=== PATIENT | female | born 1985 | race Hispanic/Latino ===

== ENCOUNTER 2021-03-23 23:53 | Inpatient (IN) | payer OTHER, SELFPAY ==
[2021-03-24 00:17] LABS: Urine Blood Negative (Negative); Urine Glucose Negative (Negative); Urine Protein Negative (Negative); Urine Specific Gravity 1.025 (1.005-1.030); Urine pH 6.5 (5.0-7.0)
[2021-03-24 00:33] LABS: Urine Specific Gravity/Preg 1.025 (1.005-1.030)
[2021-03-24] MEDS ORDERED: METHYLPREDNISOLONE 125 MG INJ ONE ×3 (01:15→22:01)
[2021-03-24 02:01] LABS: Absolute Lymphocytes (CBC) 1.4 K/uL (0.7-4.9); Hematocrit 41.3 % (36.0-45.0); Lymphocytes % 25.5 % (15.3-44.8); RBC Red Blood Cell Count 4.76 M/uL (3.86-4.86)
[2021-03-24 02:02] LABS: Protime INR 1.01
[2021-03-24 02:14] LABS: ALT/SGPT 93 U/L (12-78); AST/SGOT 78 U/L (15-37); Albumin 2.7 g/dL (3.4-5.0); Alkaline Phosphatase 84 U/L (45-117); BUN Blood Urea Nitrogen 18 mg/dL (7-18); Bicarbonate 29 mmol/L (21-32); Bilirubin Direct < 0.1 mg/dL (0-0.2); Bilirubin Total 0.2 mg/dL (0.2-1.0); Ferritin 167.1 ng/mL (8-388); Glucose Level 99 mg/dL (74-106); Lipase 93 U/L (73-393); Potassium 3.4 mmol/L (3.5-5.1); Protein, Total 6.9 g/dL (6.4-8.2); Sodium Level 140 mmol/L (136-145); Troponin (Emerg Dept Use Only) < 0.02 ng/mL (0.0-0.045)
--- NOTE | 2021-03-24 02:28 | EDPHYS ---
Physician Documentation [facility] Name: Jayson Meyers Age: 36 yrs Sex: Female : 1985 Arrival Date: 03/23/2021 Time: 23:56 Bed 23 Private MD: ED Physician Levi Chew HPI: 03/24 01:21 This 36 yrs old Unknown Female presents to ER via Ambulatory with complaints of pm1 Shortness Of Breath - O2-88%. 01:21 The patient has shortness of breath at rest. Onset: The symptoms/episode began/occurred pm1 5 day(s) ago. Duration: The symptoms are continuous, and are steadily getting worse. The patient's shortness of breath is aggravated by exertion, is alleviated by nothing. Associated signs and symptoms: Pertinent positives: chest pain, non-productive cough, Headache, Pertinent negatives: fever, nausea, vomiting, Diarrhea. Severity of symptoms: in the emergency department the symptoms are worse. The patient has not experienced similar symptoms in the past. The patient has not recently seen a physician. 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 - Social history:: Smoking status: Patient denies any tobacco usage or history of. ROS: 01:21 ENT: Negative for injury, pain, and discharge, Cardiovascular: Negative for chest pain, pm1 palpitations, and edema. 01:21 Abdomen/GI: Negative for abdominal pain, nausea, vomiting, diarrhea, and constipation, Back: Negative for injury and pain, MS/Extremity: Negative for injury and deformity, Skin: Negative for injury, rash, and discoloration. 01:21 Constitutional: Negative for fever, poor PO intake. 01:21 Cardiovascular: Positive for chest pain, with cough. 01:21 Respiratory: Positive for cough, with no reported sputum, shortness of breath, at rest. 01:21 Neuro: Positive for headache, Negative for weakness. 01:21 All other systems are negative. Exam: 01:21 Constitutional: This is a well developed, well nourished patient who is awake, alert, pm1 and in no acute distress. Head/Face: Normocephalic, atraumatic. 01:21 Skin: Warm, dry with normal turgor. Normal color with no rashes, no lesions, and no evidence of cellulitis. MS/ Extremity: Pulses equal, no cyanosis. Neurovascular intact. Full, normal range of motion. 01:21 Eyes: Exam is negative for acute changes, Extraocular movements: no acute changes, Conjunctiva: normal, no injection. 01:21 ENT: Exam is negative for acute changes, Mouth: Lips: normal, Oral mucosa: normal, pink and intact, moist. 01:21 Cardiovascular: Rate: normal, Rhythm: regular, Pulses: no pulse deficits are appreciated, Heart sounds: normal, normal S1and S2, Edema: is not appreciated. 01:21 Respiratory: Exam negative for the patient does not display signs of respiratory distress, Respirations: tachypnea, Breath sounds: bronchial sounds, that are mild, are heard diffusely. 01:21 Abdomen/GI: Inspection: abdomen appears normal, Palpation: abdomen is soft and non-tender, in all quadrants. 01:21 Neuro: Exam negative for acute changes, Orientation: is normal, Mentation: is normal, Motor: is normal, moves all fours. Vital Signs: 03/23 23:58 BP 115 / 88; Pulse 80; Resp 32; Temp 98.9(O); Pulse Ox 90% on R/A; Weight 79.83 kg (R); kg Height 5 ft. 7 in. (170.18 cm) (R); Pain 8/10; 03/24 01:35 Pulse 64; Resp 26; Pulse Ox 96% on 3 lpm NC; ea 01:46 Temp 97.8; ea 03/23 23:58 Body Mass Index 27.57 (79.83 kg, 170.18 cm) kg MDM: 00:36 Patient medically screened. pm1 01:21 Data reviewed: vital signs. pm1 02:03 Counseling: I had a detailed discussion with the patient and/or guardian regarding: the pm1 historical points, exam findings, and any diagnostic results supporting the discharge/admit diagnosis, lab results, radiology results, the need for further work-up and treatment in the hospital. 02:26 Data interpreted: Pulse oximetry: on 3L(s) per nasal canula, is 96 %. Interpretation: pm1 normal. 02:27 Physician consultation: Niles RUSSELL regarding admission, patient's condition, and pm1 will see patient in ED. 03/24 00:17 Order name: Urine --Ancillary (enter results) mw2 03/24 00:17 Order name: Urine Dipstick-Ancillary; Complete Time: 00:40 EDMS 03/24 00:18 Order name: Urine --Ancillary; Complete Time: 00:40 EDMS 03/24 00:39 Order name: BMP; Complete Time: 02:22 pm03/24 00:39 Order name: Blood Culture Adult (2) pm1 03/24 00:39 Order name: C-Reactive Protein; Complete Time: 02:22 pm03/24 00:39 Order name: CBC with Diff; Complete Time: 02:22 pm03/24 00:39 Order name: D-Dimer; Complete Time: 02:22 pm03/24 00:39 Order name: Ferritin; Complete Time: 02:22 pm03/24 00:39 Order name: Flu pm1 03/24 00:39 Order name: LFT's; Complete Time: 02:22 pm03/24 00:39 Order name: Lactate pm03/24 00:39 Order name: Lipase; Complete Time: 02:22 pm03/24 00:39 Order name: PT-INR; Complete Time: 02:22 pm03/24 00:05 Order name: XRAY Chest Pa And Lat (2 Views) kg 03/24 00:39 Order name: Procalcitonin pm03/24 00:39 Order name: Ptt, Activated; Complete Time: 02:22 pm03/24 00:39 Order name: Strep pm03/24 00:39 Order name: Troponin (emerg Dept Use Only); Complete Time: 02:22 pm03/24 00:39 Order name: Urine Microscopic Only pm03/24 05:12 Order name: Comprehensive Metabolic Panel EDMS 03/24 05:12 Order name: Phosphorus EDMS 03/24 05:12 Order name: Magnesium EDMS 03/25 03:20 Order name: Comprehensive Metabolic Panel EDMS 03/25 03:20 Order name: Phosphorus EDMS 03/25 03:20 Order name: C-Reactive Protein EDMS 03/25 03:20 Order name: Magnesium EDLA 03/25 03:20 Order name: Ferritin EDLA 03/25 04:22 Order name: Procalcitonin [facility] 03/24 00:17 Order name: Urine Dipstick-Ancillary (obtain specimen); Complete Time: 00:17 mw2 03/24 00:17 Order name: Urine Test (obtain specimen); Complete Time: 00:17 mw2 03/24 00:39 Order name: EKG; Complete Time: 00:40 pm1 03/24 00:39 Order name: Cardiac monitoring; Complete Time: 01: pm03/24 00:39 Order name: Droplet/Contact Precautions; Complete Time: : pm03/24 00:39 Order name: EKG - Nurse/Tech; Complete Time: : pm03/24 00:39 Order name: IV Start; Complete Time: : pm03/24 00:39 Order name: Labs collected and sent; Complete Time: : pm03/24 00:39 Order name: O2 Per Protocol; Complete Time: : pm03/24 00:39 Order name: O2 Sat Monitoring; Complete Time: : pm03/24 03:02 Order name: CONS Physician Consult EDLA Administered Medications: 01:15 Drug: SOLU-Medrol (methylPrednisoLONE) 125 mg Route: IVP; Site: right antecubital; ea Disposition Summary: 03/24/21 02:28 Hospitalization Ordered Hospitalization Status: Observation pm1 Provider: Shemar Groves pm1 Condition: Stable pm1 Problem: new pm1 Symptoms: have improved pm1 Bed/Room Type: Standard pm1 Location: [facility] ER HOLD(03/24/21 03:55) Room Assignment: ERHOLD-(03/24/21 03:55) cg Diagnosis - Pneumonia due to SARS-associated coronavirus pm1 - Hypoxia pm1 Forms: - Medication Reconciliation Form pm1 - SBAR form pm1 Signatures: Dispatcher [employer] Kerry Meredith RN RN cg Marinas, Patrick, NP GREEN BUILDING MATERIALS DISTRIBUTOR pm1 Koki Chaparro RN RN Dakota Art 2 Shruthi Shah RN RN kg Corrections: (The following items were deleted from the chart) 00:47 00:40 Chest Single View+RAD.RAD.BRZ ordered. EDMS EDMS 02:21 01:21 Respiratory: Positive for cough, with no reported sputum, shortness of breath, pm1pm1 03:55 02:28 Telemetry/MedSurg (observation) pm1 cg 03:55 02:28 pm1 cg
--- NOTE | 2021-03-24 02:28 | ER ---
Nurse's Notes [facility] Name: Jayson Meyers Age: 36 yrs Sex: Female : 1985 Arrival Date: 03/23/2021 Time: 23:56 Bed 23 Private MD: Diagnosis: Pneumonia due to SARS-associated coronavirus;Hypoxia Presentation: 03/23 23:58 Chief complaint: Patient states: SOB x 5 days, today at home her 02 has been 88%. Pts kg O2 in triage is 90%RA. Coronavirus screen: Client denies travel out of the [place] in the last 14 days. At this time, unable to obtain information related to travel outside the [place] Client presents with at least one sign or symptom that may indicate coronavirus-19. Standard/surgical mask placed on the client. Provider contacted for isolation considerations. Client reports previous positive COVID test result. Date of collection: March 20, 2021. Ebola Screen: Patient negative for fever greater than or equal to 101.5 degrees Fahrenheit, and additional compatible Ebola Virus Disease symptoms Patient denies exposure to infectious person. Patient denies travel to an Ebola-affected area in the 21 days before illness onset. Initial Sepsis Screen: Does the patient meet any 2 criteria? No. Patient's initial sepsis screen is negative. Does the patient have a suspected source of infection? Yes: Productive cough/pneumonia. Risk Assessment: Do you want to hurt yourself or someone else? Patient reports no desire to harm self or others. Onset of symptoms was March 22, 2021. 23:58 Method Of Arrival: Ambulatory kg 23:58 Acuity: JENNIFER 3 kg Triage Assessment: 03/24 00:02 General: Appears in no apparent distress. Behavior is calm, cooperative, appropriate kg for age, quiet. Pain: Complains of pain in chest Pain currently is 8 out of 10 on a pain scale. Quality of pain is described as pressure. Respiratory: Reports shortness of breath at rest on exertion cough that is non-productive, Onset: The symptoms/episode began/occurred gradually, the patient has mild shortness of breath. 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 - Social history:: Smoking status: Patient denies any tobacco usage or history of. Screenin:48 Abuse screen: Denies threats or abuse. Nutritional screening: No deficits noted. ea Tuberculosis screening: No symptoms or risk factors identified. Fall Risk None identified. Assessment: 00:48 General: Appears uncomfortable, Behavior is appropriate for age. Pain: Denies pain. ea Neuro: Level of Consciousness is awake, alert, obeys commands, Oriented to person, place, time. Cardiovascular: Patient's skin is warm and dry. Respiratory: Airway is patent Respiratory effort is unlabored, Respiratory pattern is tachypnea. Derm: Skin is pink, warm \T\ dry. 00:49 Reassessment: Pt ambulated approx 30 ft room air sats O2 sats 87%. ea 00:49 Reassessment: Pt placed on O2 at 3L per nasal cannula, pt tolerating well. ea 01:20 Reassessment: Patient and/or family updated on plan of care and expected duration. Pain ea level reassessed. Patient is alert, oriented x 3, equal unlabored respirations, skin warm/dry/pink. Provider at bedside updating pt on plan of care. Vital Signs: 03/23 23:58 BP 115 / 88; Pulse 80; Resp 32; Temp 98.9(O); Pulse Ox 90% on R/A; Weight 79.83 kg (R); kg Height 5 ft. 7 in. (170.18 cm) (R); Pain 8/10; 03/24 01:35 Pulse 64; Resp 26; Pulse Ox 96% on 3 lpm NC; ea 01:46 Temp 97.8; ea 03/23 23:58 Body Mass Index 27.57 (79.83 kg, 170.18 cm) kg ED Course: 03/23 23:56 Patient arrived in ED. wm 03/24 00:02 Triage completed. kg 00:02 Arm band placed on right wrist. kg 00:27 XRAY Chest Pa And Lat (2 Views) In Process Unspecified. EDMS 00:36 Bakari Medina NP is PHCP. pm1 00:36 Levi Chew MD is Attending Physician. pm1 00:48 Koki Chaparro, RN is Primary Nurse. ea 00:48 Patient has correct armband on for positive identification. Bed in low position. Call ea light in reach. Side rails up X2. 01:28 No provider procedures requiring assistance completed. Patient admitted, IV remains in ea place. 02:28 Shemar Groves MD is Hospitalizing Provider. pm1 03/25 07:40 Primary Nurse role handed off by Koki Chaparro RN bd Administered Medications: 03/24 01:15 Drug: SOLU-Medrol (methylPrednisoLONE) 125 mg Route: IVP; Site: right antecubital; ea Outcome: 01:28 Admitted to ER Hold. Please see [facility] for further documentation. ea 01:28 Condition: stable 01:28 Instructed on the need for admit. 02:28 Decision to Hospitalize by Provider. pm1 03/25 20:30 Patient left the ED. ld1 Signatures: Dispatcher [employer] EDMS Mayte Davis Patrick, DIRECTOR OF ANALYTICAL DEVELOPMENT DIRECTOR OF ANALYTICAL DEVELOPMENT pm1 Koki Chaparro, Francheska Livingston RN, ea, RN RN ld1 Shruthi Shah, Nathalia Steele RN, kg
[2021-03-24] MEDS ORDERED: ACETAMINOPHEN 500 MG TAB PO PRN (03:42)
[2021-03-24] MEDS ORDERED: MELATONIN 5 MG TABLET PO PRN (03:42)
[2021-03-24] MEDS ORDERED: BENZONATATE 100 MG CAP PO PRN (03:42)
[2021-03-24] MEDS: RIVAROXABAN 20 MG TABLET PO SCH ×2 (03:42→17:00)
[2021-03-24] MEDS ORDERED: POTASSIUM CL SA 10 MEQ TAB PO ONE ×2 (03:42→04:40)
[2021-03-24] MEDS ORDERED: ONDANSETRON 4 MG/2 ML VIAL IV PRN (03:42)
[2021-03-24] MEDS ORDERED: MORPHINE 2 MG/ML SYR IV PRN (03:42)
--- NOTE | 2021-03-24 04:18 | P.HP ---
Certification for Inpatient Patient admitted to: Inpatient With expected LOS: <2 Midnights Patient will require the following post-hospital care: None Practitioner: I am a practitioner with admitting privileges, knowledge of patient current condition, hospital course, and medical plan of care. Services: Services provided to patient in accordance with Admission requirements found in Title 42 Section 412.3 of the Code of Federal Regulations <Niles Alfred - Last Filed: 03/24/21 04:14> Patient History Date of Service: 03/24/21 Reason for admission: covid pneumonia History of Present Illness: Ms. Meyers is a 36 yo F who presents with SOB and cough for the past 5 days. She tested positive for COVID 6 days ago. At home, her O2 sats ere 88%. Here, she desats to 86% with movement. She is on 3L NC at bedside. Denies diarrhea, nausea, vomiting, fever. Ddimer 882. K 3.4. ASt 78, ALT 93. CRP 31 - Past Medical/Surgical History Diabetic: No Past Medical History: Patient denies medical history Past Surgical History: Patient denies surgical history - Family History Family History: Reviewed- Non-Contributory - Family History Father -: Diabetes - Social History Smoking Status: Never smoker Alcohol use: No CD- Drugs: No Caffeine use: No Place of Residence: Home <Niles Alfred - Last Filed: 03/24/21 04:14> Date of Service: 03/24/21 <Shemar Groves - Last Filed: 03/30/21 02:17> Allergies No Known Allergies Allergy (Unverified 03/01/17 02:26) Home Medications: Vit,Calc76/Iron/Folic [Pnv 29-1 Tablet] 1 tab PO DAILY 03/01/17 Tramadol HCl [Ultram] 50 mg PO Q6HR #20 tablet 03/02/17 Albuterol Inhaler [Ventolin Inhaler*] 2 puff IH Q6H PRN #1 hfa.aer.ad 03/25/21 Ascorbic Acid [Vitamin C*] 500 mg PO QID #100 tablet 03/25/21 Benzonatate [Tessalon Perle] 200 mg PO TID #30 cap 03/25/21 Famotidine [Pepcid*] 40 mg PO BID #60 tab 03/25/21 Rivaroxaban [Xarelto] 10 mg PO DAILY #20 tablet 03/25/21 Review of Systems 10-point ROS is otherwise unremarkable Respiratory: Cough, Shortness of Breath, SOB with Excertion, Pleuritic Pain <Niles Alfred - Last Filed: 03/24/21 04:14> Physical Examination - Physical Exam General: Alert, In no apparent distress HEENT: Atraumatic, PERRLA, Mucous membr. moist/pink, EOMI, Sclerae nonicteric Neck: Supple, 2+ carotid pulse no bruit, No LAD, Without JVD or thyroid abnormality Respiratory: Normal air movement, Rhonchi/gurgles Cardiovascular: Regular rate/rhythm, Normal S1 S2 Gastrointestinal: Normal bowel sounds, No tenderness Musculoskeletal: No tenderness Integumentary: No rashes Neurological: Normal gait, Normal speech, Normal strength at 5/5 x4 extr, Normal tone, Normal affect Lymphatics: No axilla or inguinal lymphadenopathy - Studies Laboratory Data (last 24 hrs) 03/24/21 01:17: PT 11.6, INR 1.01, APTT 24.4 03/24/21 01:17: WBC 5.50, Hgb 14.1, Hct 41.3, Plt Count 276 03/24/21 01:17: Sodium 140, Potassium 3.4 L, BUN 18, Creatinine 0.54 L, Glucose 99, Total Bilirubin 0.2, AST 78 H, ALT 93 H, Alkaline Phosphatase 84, Lipase 93 <Niles Alfred - Last Filed: 03/24/21 04:14> - Studies Microbiology Data (last 24 hrs): 03/24/21 01:05 Blood - Blood Aerobic Blood Culture - Final No growth in 5 days. 03/24/21 01:05 Blood - Blood Anaerobic Blood Culture - Final No growth in 5 days. 03/24/21 01:17 Blood - Blood Aerobic Blood Culture - Final No growth in 5 days. 03/24/21 01:17 Blood - Blood Anaerobic Blood Culture - Final No growth in 5 days. <Shemar Groves - Last Filed: 03/30/21 02:17> Assessment and Plan - Problems (Diagnosis) (1) Pneumonia due to COVID-19 virus Status: Acute - Plan pulm consulted, RT consulted sats for home O2, RA sats daily continue IV steroids, ivermectin, covid supplements antitussives and pain management as needed potassium replacement protocol daily crp, ferritin, procal DVT ppx Discharge Plan: Home Plan to discharge in: 48 Hours - Advance Directives Does patient have a Living Will: No Does patient have a Durable POA for Healthcare: No - Code Status/Comfort Care Code Status Assessed: Yes (full code ) Critical Care: No Time Spent Managing Pts Care (In Minutes): 70 <Niles Alfred - Last Filed: 03/24/21 04:14> - Problems (Diagnosis) (1) Pneumonia due to COVID-19 virus Status: Acute <Shemar Groves - Last Filed: 03/30/21 02:17> Date of Service: 03/24/21 Subjective Agree with plan of care as mentioned above Review of Systems 10-point ROS is otherwise unremarkable Physical Examination - Vital Signs Reviewed - Physical Exam General: Alert, In no apparent distress, Oriented x3 Respiratory: Diminished Cardiovascular: Regular rate/rhythm, Normal S1 S2, No murmurs Gastrointestinal: Normal bowel sounds, Soft and benign, Non-distended, No tenderness Musculoskeletal: No clubbing, No swelling, No tenderness Neurological: Sensation intact, Cranial nerves 3-12 intact - Studies Medications List Reviewed: Yes Assessment & Plan - Problems (Diagnosis) (1) Pneumonia due to COVID-19 virus Current Visit: Yes Status: Acute - Plan Continue with plan of care as mentioned below: 1. Continue with IV steroids 2. Monitor inflammatory markers 3. Repeat chest x-ray if necessary 4. O2 per protocol 5. Pulmonary consultation performed 6. Continue with albuterol inhaler therapy; also supportive care 7. GI and DVT prophylaxis Discharge Plan: Home Plan to discharge in: Greater than 2 days - Advance Directives Does patient have a Living Will: No Does patient have a Durable POA for Healthcare: No - Code Status/Comfort Care Code Status Assessed: Yes Code Status: Full Code Critical Care: No Time Spent Managing PTS Care (In Minutes): 45 <Shemar Groves - Last Filed: 03/30/21 02:17>
[2021-03-24 04:37] VITALS: BMI 20.3
[2021-03-24] MEDS ORDERED: RIVAROXABAN 20 MG TABLET PO ONE ×2 (04:40→18:41)
[2021-03-24 05:12] LABS: ALT/SGPT 94 U/L (12-78); AST/SGOT 63 U/L (15-37); Albumin 2.8 g/dL (3.4-5.0); Alkaline Phosphatase 88 U/L (45-117); BUN Blood Urea Nitrogen 15 mg/dL (7-18); Bicarbonate 28 mmol/L (21-32); Bilirubin Total 0.2 mg/dL (0.2-1.0); Glucose Level 118 mg/dL (74-106); Magnesium 2.2 mg/dL (1.8-2.4); Phosphorus 2.6 mg/dL (2.5-4.9); Potassium 4.2 mmol/L (3.5-5.1); Protein, Total 7.1 g/dL (6.4-8.2); Sodium Level 139 mmol/L (136-145)
--- NOTE | 2021-03-24 07:37 | EKG ---
Test Date: 2021-03-24 Test Time: 01:02:44 Line Tester: JUANY MEASUREMENT RESULTS: Intervals: Rate: 66 MT: 132 QRSD: 86 QT: 394 QTc: 413 [place]: P: 33 MT: 132 QRS: 36 T: 51 INTERPRETIVE STATEMENTS: Normal sinus rhythm Normal ECG No previous ECG available for comparison Electronically Signed On 03-24-21 07:36:11 CDT by Enrrique Moyer
[2021-03-24] MEDS ORDERED: ASCORBIC ACID 500 MG TABLET ONE ×3 (08:17→22:01)
[2021-03-24] MEDS ORDERED: THIAMINE HCL 100 MG TABLET ONE (08:18)
[2021-03-24] MEDS ORDERED: ZINC SULFATE 220 MG CAP ONE (08:18)
[2021-03-24] MEDS ORDERED: FAMOTIDINE 20 MG TAB ONE ×2 (08:18→22:17)
[2021-03-24] MEDS ORDERED: VITAMIN D 1000 UNIT TAB ONE (08:18)
--- NOTE | 2021-03-24 08:20 | RAD REPORT ---
EXAM DESCRIPTION: Ronni Pa And Lat (2 Views)03/24/2021 12:27 am CLINICAL HISTORY: Shortness of breath COMPARISON: None FINDINGS: Moderate bilateral pulmonary opacities. . The heart is normal size IMPRESSION: Moderate bilateral pulmonary opacities probably pneumonia
[2021-03-24] MEDS: FAMOTIDINE 20 MG TAB PO SCH ×2 (08:38→21:00)
[2021-03-24] MEDS: ASCORBIC ACID 500 MG TABLET PO SCH ×4 (08:38→21:00)
[2021-03-24] MEDS: VITAMIN D 1000 UNIT TAB PO SCH (08:38)
[2021-03-24] MEDS: THIAMINE HCL 100 MG TABLET PO SCH (08:38)
[2021-03-24] MEDS: ZINC SULFATE 220 MG CAP PO SCH (08:38)
[2021-03-24] MEDS: METHYLPREDNISOLONE 125 MG INJ IV SCH ×2 (08:38→21:00)
[2021-03-24] MEDS ORDERED: IVERMECTIN 3 MG TABLET PO SCH (09:00)
[2021-03-24] MEDS: ASPIRIN EC 81 MG TAB PO SCH (09:00)
--- NOTE | 2021-03-24 12:07 | P.CNS ---
Date of Consult: 03/24/21 Reason for Consult: Coronavirus pneumonia Chief Complaint: covid pneumonia History of Present Illness: Patient is 36 years of age admitted with coronavirus pneumonia she tested +6 days ago. With mild hypoxemia Allergies No Known Allergies Allergy (Unverified 03/01/17 02:26) Home Medications: Vit,Calc76/Iron/Folic [Pnv 29-1 Tablet] 1 tab PO DAILY 03/01/17 Tramadol HCl [Ultram] 50 mg PO Q6HR #20 tablet 03/02/17 - Past Medical/Surgical History Diabetic: No - Family History Father Medical History: Diabetes - Social History Alcohol use: No CD- Drugs: No Caffeine use: No Place of Residence: Home Review of Systems General: Weakness Respiratory: Shortness of Breath Physical Examination Temp Pulse Resp BP Pulse Ox 98.5 F 95 H 38 H 117/76 94 03/24/21 07:28 03/24/21 07:28 03/24/21 07:28 03/24/21 07:28 03/24/21 07:28 General: Alert, Oriented x3, Cooperative Laboratory Data (last 24 hrs) 03/24/21 04:34: Sodium 139, Potassium 4.2, BUN 15, Creatinine 0.66, Glucose 118 H, Phosphorus 2.6, Magnesium 2.2, Total Bilirubin 0.2, AST 63 H, ALT 94 H, Alkaline Phosphatase 88 03/24/21 01:17: PT 11.6, INR 1.01, APTT 24.4 03/24/21 01:17: WBC 5.50, Hgb 14.1, Hct 41.3, Plt Count 276 03/24/21 01:17: Sodium 140, Potassium 3.4 L, BUN 18, Creatinine 0.54 L, Glucose 99, Total Bilirubin 0.2, AST 78 H, ALT 93 H, Alkaline Phosphatase 84, Lipase 93 - Problems (1) Pneumonia due to COVID-19 virus Current Visit: Yes Status: Acute Plan: Patient is 36 years of age admitted with presumably mild coronavirus pneumonia she is currently doing well saturations satisfactory on nasal cannula oxygen labs reviewed liver function tests are mildly abnormal possible discharge tomorrow on prednisone and aspirin possibly oxygen
[2021-03-24] MEDS ORDERED: FAMOTIDINE 20 MG/2 ML VIAL IV ONE (22:01)
[2021-03-24] MEDS ORDERED: BENZONATATE 100 MG CAP PO ONE (22:23)
[2021-03-24] MEDS ORDERED: MELATONIN 5 MG TABLET PO ONE (22:23)
[2021-03-25 03:20] LABS: ALT/SGPT 152 U/L (12-78); AST/SGOT 90 U/L (15-37); Albumin 2.7 g/dL (3.4-5.0); Alkaline Phosphatase 92 U/L (45-117); BUN Blood Urea Nitrogen 15 mg/dL (7-18); Bicarbonate 28 mmol/L (21-32); Bilirubin Total 0.2 mg/dL (0.2-1.0); Ferritin 157.5 ng/mL (8-388); Glucose Level 139 mg/dL (74-106); Magnesium 2.2 mg/dL (1.8-2.4); Phosphorus 3.8 mg/dL (2.5-4.9); Potassium 4.5 mmol/L (3.5-5.1); Protein, Total 6.9 g/dL (6.4-8.2); Sodium Level 138 mmol/L (136-145)
--- NOTE | 2021-03-25 07:48 | P.PN ---
Subjective Date of Service: 03/25/21 Chief Complaint: covid pneumonia Subjective: Improving (Samira on NC O2) Review of Systems General: Weakness Respiratory: Shortness of Breath Physical Examination - Vital Signs Temperature: 98.1 F Blood Pressure: 110/75 Pulse: 90 Respirations: 34 Pulse Ox (%): 93 - Physical Exam General: Alert, In no apparent distress, Oriented x3 Assessment & Plan - Problems (Diagnosis) (1) Pneumonia due to COVID-19 virus Current Visit: Yes Status: Acute Plan: Plan for DC home [place]
[2021-03-25] MEDS ORDERED: ASPIRIN EC 81 MG TAB PO ONE (08:04)
[2021-03-25] MEDS ORDERED: ZINC SULFATE 220 MG CAP ONE (08:04)
[2021-03-25] MEDS ORDERED: FAMOTIDINE 20 MG TAB ONE (08:04)
[2021-03-25] MEDS ORDERED: METHYLPREDNISOLONE 125 MG INJ ONE (08:04)
[2021-03-25] MEDS ORDERED: VITAMIN D 1000 UNIT TAB ONE (08:04)
[2021-03-25] MEDS ORDERED: THIAMINE HCL 100 MG TABLET ONE (08:05)
[2021-03-25] MEDS ORDERED: ASCORBIC ACID 500 MG TABLET ONE ×3 (08:42→17:07)
[2021-03-25] MEDS: METHYLPREDNISOLONE 125 MG INJ IV SCH (09:00)
[2021-03-25] MEDS: ASPIRIN EC 81 MG TAB PO SCH (09:00)
[2021-03-25] MEDS: THIAMINE HCL 100 MG TABLET PO SCH (09:00)
[2021-03-25] MEDS: VITAMIN D 1000 UNIT TAB PO SCH (09:00)
[2021-03-25] MEDS: ASCORBIC ACID 500 MG TABLET PO SCH ×3 (09:00→16:45)
[2021-03-25] MEDS: FAMOTIDINE 20 MG TAB PO SCH (09:00)
[2021-03-25] MEDS: ZINC SULFATE 220 MG CAP PO SCH (09:00)
[2021-03-25 11:15] VITALS: O2SAT 92
[2021-03-25 11:30] VITALS: BP 105/71; TEMP 98.9
--- NOTE | 2021-03-25 16:41 | P.PN ---
Subjective Date of Service: 03/25/21 Patient clinically continues to improve. Patient with no new complaints. She is wanting to go home. She is still hypoxic in oxygenating in the low 90s on 3 L. will go ahead and set her up with home oxygen. She will be discharged on oral steroids. Continue with inhaler therapy and cough medication. Review of Systems 10-point ROS is otherwise unremarkable Physical Examination - Vital Signs Temperature: 98.9 F Blood Pressure: 105/71 Pulse: 76 Respirations: 18 Pulse Ox (%): 92 - Physical Exam General: Alert, In no apparent distress, Oriented x3 Respiratory: Diminished Cardiovascular: Regular rate/rhythm, Normal S1 S2, No murmurs Gastrointestinal: Normal bowel sounds, Soft and benign, Non-distended, No tenderness Musculoskeletal: No clubbing, No swelling, No tenderness Neurological: Sensation intact, Cranial nerves 3-12 intact - Studies Medications List Reviewed: Yes Assessment & Plan - Problems (Diagnosis) (1) Pneumonia due to COVID-19 virus Status: Acute - Plan 1. Continue with IV steroids 2. Monitor inflammatory markers 3. Repeat chest x-ray if necessary 4. O2 per protocol 5. Pulmonary consultation performed 6. Continue with albuterol inhaler therapy; also supportive care 7. GI and DVT prophylaxis Discharge Plan: Home Plan to discharge in: Greater than 2 days - Advance Directives Does patient have a Living Will: No Does patient have a Durable POA for Healthcare: No - Code Status/Comfort Care Code Status Assessed: Yes Code Status: Full Code Critical Care: No Time Spent Managing PTS Care (In Minutes): 45
[2021-03-25] MEDS: RIVAROXABAN 20 MG TABLET PO SCH (16:45)
[2021-03-25] MEDS ORDERED: RIVAROXABAN 20 MG TABLET PO ONE (17:07)
[2021-03-25] MEDS ORDERED: predniSONE 20 MG TAB PO SCH (21:00)
--- NOTE | 2021-03-30 02:18 | P.DS ---
Discharge Date: 03/25/21 Disposition: ROUTINE DISCHARGE Discharge Condition: GOOD Reason for Admission: covid pneumonia - Problems (1) Pneumonia due to COVID-19 virus Status: Acute Brief History of Present Illness: Ms. Meyers is a 36 yo F who presents with SOB and cough for the past 5 days. She tested positive for COVID 6 days ago. At home, her O2 sats ere 88%. Here, she desats to 86% with movement. She is on 3L NC at bedside. Denies diarrhea, nausea, vomiting, fever. Ddimer 882. K 3.4. ASt 78, ALT 93. CRP 31 Hospital Course: Patient is clinically doing well with no new complaints. Patient's clinical symptoms are improving. Vital Signs/Physical Exam: Temp Pulse Resp BP Pulse Ox 98.9 F 76 18 105/71 92 03/30/21 02:17 03/30/21 02:17 03/30/21 02:17 03/30/21 02:17 03/30/21 02:17 General: Alert, In no apparent distress, Oriented x3 Laboratory Data at Discharge: WBC 5.50 K/uL (4.3-10.9) 03/24/21 01:17 Hgb 14.1 g/dL (12.0-15.0) 03/24/21 01:17 Hct 41.3 % (36.0-45.0) 03/24/21 01:17 Plt Count 276 K/uL (152-406) 03/24/21 01:17 PT 11.6 SECONDS (9.5-12.5) 03/24/21 01:17 INR 1.01 03/24/21 01:17 APTT 24.4 SECONDS (24.3-36.9) 03/24/21 01:17 Sodium 138 mmol/L (136-145) 03/25/21 01:54 Potassium 4.5 mmol/L (3.5-5.1) 03/25/21 01:54 BUN 15 mg/dL (7-18) 03/25/21 01:54 Creatinine 0.60 mg/dL (0.55-1.3) 03/25/21 01:54 Glucose 139 mg/dL (74-106) H 03/25/21 01:54 Phosphorus 3.8 mg/dL (2.5-4.9) 03/25/21 01:54 Magnesium 2.2 mg/dL (1.8-2.4) 03/25/21 01:54 Total Bilirubin 0.2 mg/dL (0.2-1.0) 03/25/21 01:54 AST 90 U/L (15-37) H 03/25/21 01:54 ALT 152 U/L (12-78) H 03/25/21 01:54 Alkaline Phosphatase 92 U/L (45-117) 03/25/21 01:54 Lipase 93 U/L (73-393) 03/24/21 01:17 Home Medications: Vit,Calc76/Iron/Folic [Pnv 29-1 Tablet] 1 tab PO DAILY 03/01/17 Tramadol HCl [Ultram] 50 mg PO Q6HR #20 tablet 03/02/17 Albuterol Inhaler [Ventolin Inhaler*] 2 puff IH Q6H PRN #1 hfa.aer.ad 03/25/21 Ascorbic Acid [Vitamin C*] 500 mg PO QID #100 tablet 03/25/21 Benzonatate [Tessalon Perle] 200 mg PO TID #30 cap 03/25/21 Famotidine [Pepcid*] 40 mg PO BID #60 tab 03/25/21 Rivaroxaban [Xarelto] 10 mg PO DAILY #20 tablet 03/25/21 New Medications: Famotidine [Pepcid*] 40 mg PO BID #60 tab Benzonatate [Tessalon Perle] 200 mg PO TID #30 cap Albuterol Inhaler [Ventolin Inhaler*] 2 puff IH Q6H PRN #1 hfa.aer.ad PRN Reason: Shortness Of Breath Ascorbic Acid [Vitamin C*] 500 mg PO QID #100 tablet Rivaroxaban [Xarelto] 10 mg PO DAILY #20 tablet Physician Discharge Instructions: OK TO DC IV AND DC HOME FOLLOW-UP WITH PRIMARY CARE PROVIDER IN 1-2 WEEKS FOLLOW-UP WITH Pulmonary IN 1-2 WEEKS RETURN TO THE ER IF symptoms worsen CALL or TEXT DR. SHAW AT [phone] IF ANY QUESTIONS REGARDING HOSPITAL STAY. PLEASE CALL THE FLOOR AT [phone] IF ANY MEDICATION OR NURSING QUESTIONS. Diet: AHA Activity: Fall precautions Followup: NONE,NONE [Primary Care Provider] - Time spent managing pt's care (in minutes): 35
== END 2021-03-25 19:31 | disposition home or self-care (01) | DRG 177 ==
LOC: ER 23:53 → ERHOLD 03-24 03:02 → OBSVTOIN 03-24 08:02
PROVIDERS: ADMIT Hospitalist; ATTEND Hospitalist
DX: U07.1 COVID-19 (principal); J12.82 Pneumonia due to coronavirus disease 2019; R09.02 Hypoxemia
CPT/HCPCS: 36415; 71046; 80048; 80053; 80076; 81003; 81025; 82728; 83605; 83690; 83735; 84100; 84145; 84484; 85025; 85379; 85610; 85730; 86140; 87040; 93005; 94760; 96374; 99285; G0378; J2930